=== PATIENT | male | born 1975 | race Hispanic/Latino ===

== ENCOUNTER → 2025-06-09 | Day surgery (SDC) | payer BC ==
[~2025-06-09] MED LIST: FENTANYL CITRATE/PF 100MCG/2 ML INJ ONE; GLUCAGON FOR INJ 1 MG VIAL ONE; HYOSCYAMINE SULFATE 0.5 MG/ML INJ ONE; LIDOCAINE HCL 2% LOCAL INJ 5 ML SDV VIAL INJ ONE; METOCLOPRAMIDE HCL 10 MG/2ML VIAL ONE; MIDAZOLAM HCL 2 MG/2 ML VIAL ONE; PHENYLEPHRINE HCL 1% 10 MG/ML VIAL ONE; PROPOFOL IV EMULSION 10 MG/ML 20 ML VIAL ONE; PROPOFOL IV EMULSION 50 ML IV ONE
[2025-06-09] MEDS: LACTATED RINGER'S 1,000 ML ONE (13:44)
[2025-06-09 16:38] VITALS: TEMP 97.3
[2025-06-09 17:05] VITALS: BP 115/65; PULSE 71; RESP 15; O2SAT 97
== END | disposition home or self-care (01) ==
LOC: OR 12:55
PROVIDERS: ATTEND Internal Medicine Gastroenterology
DX: K29.50 Unspecified chronic gastritis without bleeding (principal); B96.81 Helicobacter pylori [H. pylori] as the cause of diseases classified elsewhere; K21.00 Gastro-esophageal reflux disease with esophagitis, without bleeding; K44.9 Diaphragmatic hernia without obstruction or gangrene; R09.A2 Foreign body sensation, throat; D12.2 Benign neoplasm of ascending colon; R43.8 Other disturbances of smell and taste; D12.3 Benign neoplasm of transverse colon; K59.09 Other constipation; K64.8 Other hemorrhoids; E66.9 Obesity, unspecified; Z71.3 Dietary counseling and surveillance; Z68.33 Body mass index [BMI] 33.0-33.9, adult
CPT/HCPCS: 43239; 45385; 93005; J1610; J1980; J2003; J2250; J2371; J2470; J2704 ×2; J2765; J3010; J7121; 45378